=== PATIENT | female | born 1995 ===

== ENCOUNTER 2019-05-19 18:17 | Emergency (ER) | payer OTHER ==
[~2019-05-19] VITALS: Ht 172.7 cm; Wt 59.4 kg
== END 2019-05-20 11:35 | disposition home or self-care (01) ==
LOC: ED 18:17
DX: Z00.00 Encounter for general adult medical examination without abnormal findings (principal); Z87.891 Personal history of nicotine dependence
CPT/HCPCS: 80053; 80176; 81001; 84443; 84703; 85025; 99283; G0480